=== PATIENT | male | born 1975 | race Two or more races ===

== ENCOUNTER 2021-04-18 19:36 | Emergency (ER) | payer SELFPAY ==
--- NOTE | 2021-04-19 00:30 | NUR ---
Patient was called to be triaged but was not present in the waiting room or outside of ER.
--- NOTE | 2021-04-19 00:45 | NUR ---
PATIENT WAS CALLED TO BE TRIAGED BUT WAS NOT PRESENT IN THE WAITING ROOM.
--- NOTE | 2021-04-19 01:00 | NUR ---
PATIENT WAS NOT TRAIGED OR SEEN BY [facility].
== END 2021-04-19 01:00 | disposition left against medical advice (07) ==
LOC: ER 19:40
DX: Z53.21 Procedure and treatment not carried out due to patient leaving prior to being seen by health care provider (principal)